=== PATIENT | male | born 1995 | race Caucasian/White ===

== ENCOUNTER → 2016-09-15 | Outpatient (CLI) | payer OTHER | END | disposition home or self-care (01) | LOC: RAD 15:06 | DX: M25.551 Pain in right hip (principal); M25.552 Pain in left hip ==

== ENCOUNTER → 2017-07-09 | Outpatient (CLI) | payer OTHER | LOC: RAD 16:01 | DX: M54.6 Pain in thoracic spine (principal) ==

== ENCOUNTER → 2018-02-28 | Outpatient (CLI) | payer OTHER | END | disposition home or self-care (01) | LOC: RAD 13:35 | DX: M54.42 Lumbago with sciatica, left side (principal) ==